=== PATIENT | male | born 1995 | race Caucasian/White ===

== ENCOUNTER → 2017-01-31 00:21 | Emergency (ER) | payer BC ==
[2017-01-31 00:26] VITALS: BP 148/92
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
== END | disposition home or self-care (01) ==
LOC: ED 00:21
DX: S01.01XA Laceration without foreign body of scalp, initial encounter (principal); W20.8XXA Other cause of strike by thrown, projected or falling object, initial encounter; Y93.9 Activity, unspecified; Y92.9 Unspecified place or not applicable
CPT/HCPCS: 12001; 99281